=== PATIENT | male | born 1970 | race Caucasian/White ===

== ENCOUNTER 2016-11-28 09:26 | Emergency (ER) | payer MEDICARE, OTHER ==
[2017-03-08] MEDS ORDERED: GLUCOTROL XL5 MG PO (12:20)
[2017-03-08] MEDS ORDERED: PERCOCET 10-321 EACH PO (12:21)
[2017-03-08] MEDS ORDERED: ASPIR 8181 MG PO (12:21)
[2017-03-08] MEDS ORDERED: LIPITOR80 MG PO (12:21)
[2017-03-08] MEDS ORDERED: PHENERGAN25 M1 PO (12:22)
[2017-03-08] MEDS ORDERED: ZOFRAN4 MG PO (12:22)
[2017-03-08] MEDS ORDERED: NEURONTIN600 MG PO (12:22)
[2017-03-08] MEDS ORDERED: COREG12.5 MG PO (12:24)
[2017-03-08] MEDS ORDERED: BRILINTA90 MG PO (12:24)
[2017-03-08] MEDS ORDERED: LISINOPRIL-HCT1 EAC2 PO (12:25)
[2017-03-08] MEDS ORDERED: LEVEMIR100 UNIT/1 SQ (12:25)
[2017-03-08] MEDS ORDERED: INVANZ1 GM IV (12:26)
== END 2016-11-28 12:13 | disposition home or self-care (01) ==
LOC: ER 09:26
DX: R10.9 Unspecified abdominal pain (principal); E11.65 Type 2 diabetes mellitus with hyperglycemia; R11.0 Nausea; R31.0 Gross hematuria; E66.9 Obesity, unspecified; Z68.41 Body mass index [BMI] 40.0-44.9, adult; I25.10 Atherosclerotic heart disease of native coronary artery without angina pectoris; I10 Essential (primary) hypertension; Z87.442 Personal history of urinary calculi; Z95.5 Presence of coronary angioplasty implant and graft; Z79.4 Long term (current) use of insulin; Z79.899 Other long term (current) drug therapy
CPT/HCPCS: 36415; 96361; 96374; 96375; J1885